=== PATIENT | male | born 1940 | race Caucasian/White ===

== ENCOUNTER 2023-11-12 04:07 | Day surgery (SDC) | payer OTHER, BC ==
[2023-11-11 09:54] VITALS: BMI 29.0
[2023-11-12] MEDS ORDERED: LIDOCAINE HCL/PF 1% SDV 5ML VIAL ONE ×2 (07:18→10:04)
[2023-11-12] MEDS ORDERED: DEXAMETHASONE SOD PHOSPHATE 10 MG/1 ML VIAL ONE ×2 (07:18→10:04)
[2023-11-12 08:56] VITALS: RESP 20
[2023-11-12] MEDS ORDERED: ACETAMINOPHEN 500 MG TABLET (FP) PO PRN (09:44)
[2023-11-12] MEDS: LIDOCAINE HCL 1% PRESERVATIVE FREE - 30ML VIAL IJ ONE (10:25)
[2023-11-12] MEDS: DEXAMETHASONE SOD PHOSPHATE 10 MG/1 ML VIAL IVPUSH ONE (10:28)
[2023-11-12 13:25] VITALS: BP 119/81; PULSE 73; TEMP 98.2
== END 2023-11-12 11:20 | disposition home or self-care (01) ==
LOC: JASU-SURG 04:07
PROVIDERS: ATTEND Pain Medicine Pain Medicine
PROC: 3E0R3BZ Introduction of Anesthetic Agent into Spinal Canal, Percutaneous Approach (ICD-10-PCS; 2023-11-12)
PROC: 3E0R33Z Introduction of Anti-inflammatory into Spinal Canal, Percutaneous Approach (ICD-10-PCS; principal; 2023-11-12 10:45)
DX: M54.16 Radiculopathy, lumbar region (principal); M48.061 Spinal stenosis, lumbar region without neurogenic claudication
CPT/HCPCS: 76000-TC-FY; J1100

== ENCOUNTER 2023-12-20 14:51 | Emergency (ER) | payer OTHER, BC ==
[2023-12-20 15:06] VITALS: BP 148/64; PULSE 94; RESP 18; TEMP 98.1; BMI 28.2
[2023-12-20] MEDS ORDERED: predniSONE 20 MG TABLET (UD) ONE (15:42)
[2023-12-20] MEDS ORDERED: AZITHROMYCIN 500 MG TABLET ONE (15:43)
[2023-12-20] MEDS ORDERED: ALBUTEROL SO4 2.5/IPRATROPIUM 0.5 INH SOL 3 ML VIAL.NEB. NEB ONE (15:43)
[2023-12-20] MEDS: ALBUTEROL SO4 2.5/IPRATROPIUM 0.5 INH SOL 3 ML VIAL.NEB. NEB SCH (15:45)
[2023-12-20] MEDS: predniSONE 20 MG TABLET (UD) PO ONE (15:55)
[2023-12-20] MEDS: AZITHROMYCIN 500 MG TABLET PO ONE (15:55)
== END 2023-12-20 17:13 | disposition home or self-care (01) ==
LOC: FER 14:51
PROC: 3E0F7GC Introduction of Other Therapeutic Substance into Respiratory Tract, Via Natural or Artificial Opening (ICD-10-PCS; principal; 2023-12-20)
DX: J40 Bronchitis, not specified as acute or chronic (principal); R06.02 Shortness of breath; R05.9 Cough, unspecified; Z20.822 Contact with and (suspected) exposure to COVID-19
CPT/HCPCS: 0241U-QW; 71045-TC-FY; 99284-25

== ENCOUNTER 2023-12-24 05:25 | Day surgery (SDC) | payer OTHER, BC ==
[2023-12-24] MEDS ORDERED: ACETAMINOPHEN 500 MG TABLET (FP) PO PRN (09:13)
[2023-12-24 11:01] VITALS: BMI 28.3
[2023-12-24] MEDS: LIDOCAINE HCL 1% PRESERVATIVE FREE - 30ML VIAL IJ ONE ×2 (11:58)
[2023-12-24] MEDS: IOHEXOL 180 MG/1 ML ML IJ ONE ×2 (11:59)
[2023-12-24] MEDS: BUPIVACAINE HCL/PF 0.5% (5MG/ML) 10 ML VIAL IJ ONE ×2 (12:02)
[2023-12-24] MEDS: TRIAMCINOLONE ACETONIDE 40 MG/ML 10 ML VIAL IJ ONE ×2 (12:03)
[2023-12-24 13:24] VITALS: BP 127/73; PULSE 69; RESP 18; TEMP 97.3
== END 2023-12-24 13:00 | disposition home or self-care (01) ==
LOC: JASU-SURG 05:25
PROVIDERS: ATTEND Pain Medicine Pain Medicine
PROC: 3E0U3BZ Introduction of Anesthetic Agent into Joints, Percutaneous Approach (ICD-10-PCS; 2023-12-24)
PROC: 3E0U33Z Introduction of Anti-inflammatory into Joints, Percutaneous Approach (ICD-10-PCS; principal; 2023-12-24 12:00)
DX: M53.3 Sacrococcygeal disorders, not elsewhere classified (principal)
CPT/HCPCS: 76000-TC-FY